=== PATIENT | male | born 1975 | race Caucasian/White ===

== ENCOUNTER 2017-04-07 12:24 | Emergency (ER) | payer OTHER, BC ==
--- NOTE | 2017-04-07 12:49 | Emergency Department Record ---
History of Present Illness - General Chief complaint: Allergic Reaction Stated complaint: ALLERGIC REACTION Time Seen by Provider: 04/07/17 12:47 Source: Patient, RN notes reviewed Mode of Arrival: Ambulatory - History of Present Illness Initial Comments: patient has a rash on the legs and his arms and only in the sun areas of his body Onset/Timin -: Days(s) Exposure: Unknown Symptoms: Itching, Rash Severity: Moderate Previous Allergy History: None - Related Data Home Medications Medication Instructions Recorded Confirmed Last Taken Acyclovir [Acyclovir] 400 mg PO BID 04/07/17 04/07/17 Unknown Citalopram Hydrobromide [Celexa] 10 mg PO BID 04/07/17 04/07/17 Unknown Previous Rx's Medication Instructions Recorded Prednisone [Prednisone 10Mg] 10 mg PO ASDIR #30 tab 04/07/17 Allergies Allergy/AdvReac Type Severity Reaction Status Date / Time No Known Drug Allergies Allergy Verified 04/07/17 12:37 Travel Screening - Travel/Exposure Within Last 30 Days Have you traveled within the last 30 days?: No Review of Systems Reviewed: No additional complaints except as noted below Constitutional: Reports: As per HPI. Denies: Chills, Fever, Malaise, Night sweats, Weakness, Weight change Eyes: Reports: As per HPI. Denies: Eye discharge, Eye pain, Photophobia, Vision change ENT: Reports: As per HPI. Denies: Congestion, Dental pain, Ear pain, Epistaxis , Hearing loss, Throat pain Respiratory: Reports: As per HPI. Denies: Cough, Dyspnea, Hemoptysis, Stridor, Wheezes Cardiovascular: Reports: As per HPI. Denies: Arrhythmia, Chest pain, Dyspnea on exertion, Edema, Murmurs, Orthopnea, Palpitations, Paroxysmal nocturnal dyspnea, Rheumatic Fever, Syncope Endocrine: Reports: As per HPI. Denies: Fatigue, Heat or cold intolerance, Polydipsia, Polyuria Gastrointestinal: Reports: As per HPI. Denies: Abdominal pain, Constipation, Diarrhea, Hematemesis, Hematochezia, Melena, Nausea, Vomiting Genitourinary: Reports: As per HPI. Denies: Dysuria, Frequency, Hematuria, Incontinence, Retention, Testicular pain, Testicular mass, Urgency Musculoskeletal: Reports: As per HPI. Denies: Arthralgia, Back pain, Gout, Joint swelling, Myalgia, Neck pain Skin: Reports: As per HPI, Rash. Denies: Bruising, Change in color, Change in hair/nails, Lesions, Pruritus Neurological: Reports: As per HPI. Denies: Abnormal gait, Confusion, Headache, Numbness, Paresthesias, Seizure, Tingling, Tremors, Vertigo, Weakness Psychiatric: Reports: As per HPI. Denies: Anxiety, Auditory hallucinations, Depression, Homicidal thoughts, Suicidal thoughts, Visual hallucinations Hematological/Lymphatic: Reports: As per HPI. Denies: Anemia, Blood Clots, Easy bleeding, Easy bruising, Swollen glands Past Medical History - SOCIAL HISTORY Smoking Status: Current every day smoker Alcohol Use: None Drug Use: None - RESPIRATORY Hx Respiratory Disorders: No - CARDIOVASCULAR Hx Cardio Disorders: No - NEURO Hx Neuro Disorders: No - GI Hx GI Disorders: No - Hx Genitourinary Disorders: No - ENDOCRINE Hx Endocrine Disorders: No - MUSCULOSKELETAL Hx Musculoskeletal Disorders: No - PSYCH Hx Psych Problems: Yes Hx Depression: Yes - HEMATOLOGY/ONCOLOGY Hx Hematology/Oncology Disorders: No Family Medical History Any Significant Family History?: No Physical Exam - General General Appearance: Alert, Oriented x3, Cooperative, No acute distress - Head Head exam: Normal inspection - Eye Eye exam: Normal appearance, PERRL Pupils: Normal accommodation - ENT ENT exam: Normal exam, Mucous membranes moist, Normal external ear exam, Normal orophraynx, TM's normal bilaterally Ear exam: Normal external inspection. negative: External canal tenderness Nasal Exam: Normal inspection. negative: Discharge, Sinus tenderness Mouth exam: Normal external inspection, Tongue normal Teeth exam: Normal inspection. negative: Dental caries Throat exam: Normal inspection. negative: Tonsillar erythema, Tonsillar exudate - Neck Neck exam: Normal inspection, Full ROM. negative: Tenderness - Respiratory Respiratory exam: Normal lung sounds bilaterally. negative: Respiratory distress - Cardiovascular Cardiovascular Exam: Regular rate, Normal rhythm, Normal heart sounds - GI/Abdominal GI/Abdominal exam: Soft, Normal bowel sounds. negative: Tenderness - Rectal Rectal exam: Deferred - exam: Deferred - Extremities Extremities exam: Normal inspection, Full ROM, Normal capillary refill. negative: Tenderness - Back Back exam: Reports: Normal inspection, Full ROM. Denies: Muscle spasm, Rash noted, Tenderness - Neurological Neurological exam: Alert, Normal gait, Oriented X3, Reflexes normal - Psychiatric Psychiatric exam: Normal affect, Normal mood - Skin Skin exam: Rash (sun exposed areas only) Course Vital Signs 04/07/17 12:32 Temperature 98.7 F Pulse Rate 86 Respiratory 18 Rate Blood Pressure 117/81 Pulse Ox 97 Disposition Clinical Impression: Dermatitis Disposition: Home, Self-Care Condition: (1) Good Instructions: General Allergic Reaction (ED) Additional Instructions: follow up with Dr. Logan in 3 days prednisone taper from 40 mg use benadryl 25 mg every 6 hours Prescriptions: Prednisone [Prednisone 10Mg] 10 mg PO ASDIR #30 tab Forms: Patient Portal Access Time of Disposition: 13:03
[2017-04-07] MEDS ORDERED: METHYLPREDNISOLONE 80MG/VIAL IM ONE (13:02)
== END 2017-04-07 13:27 | disposition home or self-care (01) ==
LOC: ER 12:24
DX: L30.9 Dermatitis, unspecified (principal)
CPT/HCPCS: 96372; 99283; J1040

== ENCOUNTER 2017-08-01 14:49 | Day surgery (SDC) | payer OTHER, BC ==
--- NOTE | 2017-08-08 14:10 | Operative Note ---
DATE OF SURGERY: 08/01/2017 PREOPERATIVE DIAGNOSIS: Hematuria and hematospermia. POSTOPERATIVE DIAGNOSIS: Hematuria and hematospermia. OPERATION: Cystoscopy. Surgeon: Edenilson Estrada MD INSURANCE HEALTHCARE CONSULTANT: None. PROCEDURE: Preop informed consent was obtained. Antibiotics were given. The patient was brought to the procedure room at [facility], placed supine. Genitalia prepped and draped sterilely. Flexible cystoscopy was performed. The anterior urethra appears unremarkable. The prostate appears small and bilobar. Mildly visually obstructive. The bladder was entered and carefully inspected systematically. No abnormalities were seen, and the ureteral orifices had normal appearance and positioning. Each was effluxing clear urine. The scope was then removed. The procedure was terminated. The patient tolerated the procedure well. PLAN: The patient's workup is now complete. CT urogram and cystoscopy show no obvious source of urinary tract abnormality, and he was asked to follow up for any changes in his urinary habits moving forward. CC: Dr. Desmond MATTHEW
== END 2017-08-01 15:50 | disposition home or self-care (01) ==
LOC: HOP 14:49
PROVIDERS: ATTEND Urology
DX: R31.9 Hematuria, unspecified (principal); R36.1 Hematospermia

== ENCOUNTER 2019-01-18 07:46 | Emergency (ER) | payer BC ==
[2019-01-18] MEDS ORDERED: ACETAMINOPHEN 325 MG TAB PO ONE (08:10)
[2019-01-18] MEDS ORDERED: IBUPROFEN 600 MG TABLET PO ONE (08:11)
--- NOTE | 2019-01-18 08:16 | Emergency Department Record ---
History of Present Illness - General Chief complaint: Flu Like Symptoms Stated complaint: FLU Time Seen by Provider: 01/18/19 08:08 Source: Patient Mode of Arrival: Ambulatory Limitations: No limitations - History of Present Illness Initial comments: The patient is here with a 7 hour hx of cough, body aches, and fever. His family is ill at home with Influenza A and he did not receive a flu shot. The patient denies any other issues. MD Complaint: Generalized weakness Onset/Timin -: Hour(s) Location: Generalized Associated Symptoms: Diaphoresis, Fever/chills, Nausea/vomiting - [place] Coma Scale Eye Response: (4) Open spontaneously Motor Response: (6) Obeys commands Verbal Response: (5) Oriented [place] Total: 15 - Related Data Home Medications Medication Instructions Recorded Confirmed Last Taken Venlafaxine HCl [Effexor Xr] 37.5 mg PO DAILY 01/18/19 01/18/19 01/17/19 Venlafaxine HCl [Venlafaxine HCl 37.5 mg PO BID 01/18/19 01/18/19 01/17/19 ER] Previous Rx's Medication Instructions Recorded Oseltamivir Phosphate [Tamiflu] 75 mg PO BID #10 capsule 01/18/19 Allergies Allergy/AdvReac Type Severity Reaction Status Date / Time No Known Drug Allergies Allergy Verified 04/07/17 12:37 Travel Screening - Travel/Exposure Within Last 30 Days Have you traveled within the last 30 days?: No - Travel/Exposure Within Last Year Have you traveled outside the [place] in the last year?: No - Additonal Travel Details Have you been exposed to anyone with a communicable illness?: No - Travel Symptoms Symptom Screening: Fever (GT 100.4) Review of Systems Constitutional: Reports: Chills, Fever, Malaise Eyes: Denies: Eye discharge ENT: Reports: Congestion Respiratory: Reports: Cough. Denies: Dyspnea Cardiovascular: Denies: Arrhythmia Past Medical History - SOCIAL HISTORY Smoking Status: Current every day smoker Alcohol Use: None Drug Use: None - RESPIRATORY Hx Respiratory Disorders: No - CARDIOVASCULAR Hx Cardio Disorders: No - NEURO Hx Neuro Disorders: No - GI Hx GI Disorders: No - Hx Genitourinary Disorders: No - ENDOCRINE Hx Endocrine Disorders: No - MUSCULOSKELETAL Hx Musculoskeletal Disorders: No - PSYCH Hx Psych Problems: Yes Hx Depression: Yes - HEMATOLOGY/ONCOLOGY Hx Hematology/Oncology Disorders: No Family Medical History Any Significant Family History?: No Physical Exam - General General Appearance: Alert, Oriented x3, Cooperative, No acute distress - Head Head exam: Atraumatic, Normocephalic - Eye Eye exam: Normal appearance, PERRL - Neck Neck exam: Normal inspection, Full ROM. negative: Tenderness - Respiratory Respiratory exam: Normal lung sounds bilaterally. negative: Respiratory distress - Cardiovascular Cardiovascular Exam: Regular rate, Normal rhythm, Normal heart sounds - GI/Abdominal GI/Abdominal exam: Soft, Normal bowel sounds. negative: Tenderness - Extremities Extremities exam: Normal inspection, Full ROM, Normal capillary refill. negative: Tenderness - Neurological Neurological exam: Alert. negative: Motor sensory deficit Course Vital Signs 01/18/19 07:58 Temperature 102.6 F H Pulse Rate 130 H Respiratory 20 Rate Blood Pressure 110/72 Pulse Ox 95 - Reevaluation(s) Reevaluation #1: The patient is doing well. He still has a fever but the TYlenol and Motrin have not had enough time to bring his fever down. Since the rest of the family has Influenza A and the patient has classic symptoms of it I do feel he also has the illness even though his nasal flu swab was neg. We will discharge him with Tamiflu and have him F/U with his PCP if not better. 01/18/19 08:56 Medical Decision Making - Data Complexity MDM Data: X-Ray Ordered and/or Reviewed - Radiology Data Radiology results: Report reviewed (CXR: Neg.) Disposition Disposition: Discharge Clinical Impression: Influenza A Disposition: Home, Self-Care Condition: (2) Stable Instructions: Influenza (ED) Additional Instructions: Please use Tylenol and Motrin for fever and take the Tamiflu. Please return for any high fever that does not come down with Tylenol and Motrin, shortness of breath or vomiting. Please see your family doctor if not better in 3 days. Prescriptions: Oseltamivir Phosphate [Tamiflu] 75 mg PO BID #10 capsule Forms: Patient Portal Access Time of Disposition: 09:01 Quality - Quality Measures Quality Measures: N/A - Blood Pressure Screening View Details: Yes Does Patient Have Any of the Following: No Blood Pressure Classification: Normal BP Reading Systolic Measurement: 110 Diastolic Measurement: 72 Screening for High Blood Pressure: < Normal BP, F/U Not Required > [[id number]]
[2019-01-18 08:49] LABS: INFLUENZA A NEGATIVE (NEGATIVE)
[2019-01-18 08:50] LABS: INFLUENZA B NEGATIVE (NEGATIVE)
--- NOTE | 2019-01-20 13:30 | RADIOLOGY REPORT ---
DATE: 01/18/2019 at 0821 hours. EXAM: CHEST, TWO VIEWS. HISTORY: Chest pain. Cough and congestion. TECHNIQUE: Upright PA and lateral views of the chest. COMPARISON: None. FINDINGS: The heart is not enlarged. No pulmonary venous hypertension is seen. The lungs and pleural spaces are clear. There are degenerative endplate changes scattered within the visualized spine. IMPRESSION: NO EVIDENCE OF ACUTE CARDIOPULMONARY DISEASE. JOB NUMBER: [id number] MTDD
== END 2019-01-18 09:26 | disposition home or self-care (01) ==
LOC: ER 07:46
DX: J10.1 Influenza due to other identified influenza virus with other respiratory manifestations (principal); R53.1 Weakness; R05 Cough; F17.210 Nicotine dependence, cigarettes, uncomplicated
CPT/HCPCS: 71046; 87400; 99283